=== PATIENT | male | born 1950 | race Caucasian/White ===

== ENCOUNTER 2020-06-27 11:04 | Emergency (ER) | payer OTHER ==
[2020-06-27] MEDS ORDERED: HYDROMORPHONE HCL 2 MG/ML inj ONE ×2 (11:30→16:06)
[2020-06-27] MEDS ORDERED: ONDANSETRON 4 MG/2 ML VIAL ONE (11:30)
--- OUTSIDE RECORDS SUMMARY | 2020-06-27 11:53 | XMS REPORT | Clinical Summary ---
:1950 Author Organization [facility] Address [address] [place] [address] Care Team Providers Name Role Phone TishayashrobertoSaran Primary Care Provider Allergies Active Allergy Reactions Severity Noted Date Comments No Known Drug Allergies Other (See Comments) 6 Medications Medication Sig Dispensed Refills Start End Date Status Date NAPROXEN ORAL Take 400 mg 0 Acti ve by mouth. 1 tablet Po bid prn hydroCHLOROthiazide Take 1 90 tablet 1 Active (HYDRODIURIL) 25 MG tablet (25 9 tabletIndications: mg total) Essential hypertension by mouth once daily. finasteride (PROSCAR) 5 Take 1 90 tablet 1 Active mg tablet tablet (5 0 mg total) by mouth daily. atorvastatin (LIPITOR) Take 1 90 tablet 1 Active 20 mg tablet tablet (20 0 mg total) by mouth daily. Default OP ins tamsulosin (FLOMAX) 0.4 Take 1 90 capsule 1 Active mg capsule capsule(s) 0 every day by oral route. amLODIPine-benazepriL Take 1 90 capsule 1 Active (LOTREL) 5-40 mg per capsule by 0 capsule mouth once daily. Needs office visit. metoprolol tartrate Take 1 180 tablet 3 04/25/20 Active (LOPRESSOR) 50 mg tablet (50 0 21 tablet mg total) by mouth 2 (two) times a day. tamsulosin (FLOMAX) 0.4 Take 1 90 capsule 1 12/25 Discontinued mg capsule capsule(s) 9 20 (Reorder ) every day by oral route. amlodipine-benazepril Take 1 90 capsule 1 0 Discontinued (LOTREL) 5-40 mg per capsule by 9 20 (Reorder) capsule mouth once daily. Needs office visit. atorvastatin (LIPITOR) Take 1 90 tablet 0 0 Discontinued 20 MG tablet tablet (20 9 19 (Reord er) mg total) by mouth once daily. Default OP ins metoprolol succinate XL Take 1 90 tablet 1 Discontinued (TOPROL-XL) 25 mg 24 hr tablet (25 9 20 (Discontinued tabletIndications: mg total) b y another Essential hypertension by mouth clinician) once daily. metFORMIN XR One P.O. 180 tablet 1 07/26/20 Discon tinued (GLUCOPHAGE-XR) 500 mg B.I.D. 9 19 (Side effects) 24 hr tablet finasteride (PROSCAR) 5 Take 1 90 tablet 1 Discontinued mg tablet tablet (5 9 20 (Reorder) mg total) by mouth daily. atorvastatin (LIPITOR) Take 1 90 tablet 0 0 Discontinued 20 MG tablet tablet (20 9 19 mg total) by mouth once daily. Default OP ins atorvastatin (LIPITOR) Take 1 90 tablet 0 0 Discontinued 20 MG tablet tablet by 9 20 (Reorde r) mouth once daily metoprolol tartrate Take 1 60 tablet 11 04/25/20 Discontinued (LOPRESSOR) 50 mg tablet (50 0 20 ( Reorder) tablet mg total) by mouth 2 (two) times a day. atorvastatin (LIPITOR) Take 1 90 tablet 1 0 Discontinued 20 MG tablet tablet (20 0 20 (Reord er) mg total) by mouth daily. Default OP ins tamsulosin (FLOMAX) 0.4 Take 1 90 capsule 1 04/24 Discontinued mg capsule capsule(s) 0 20 (Reorder ) every day by oral route. amLODIPine-benazepriL Take 1 90 capsule 1 0 Discontinued (LOTREL) 5-40 mg per capsule by 0 20 (Reorder) capsule mouth once daily. Needs office visit. Active Problems Problem Noted Date Nutritional counseling 07/26/2019 Obesity, morbid, BMI 50 or higher 07/26/2019 Metformin adverse reaction 07/26/2019 Type 2 diabetes mellitus without complication, without long-term current 05/26/2018 use of insulin Depression screening 05/26/2018 Sleep disorder 08/28/2016 Somnolence, daytime 08/28/2016 Hearing loss 08/28/2016 Knee stiff 08/28/2016 Hyperglycemia 08/28/2016 Panic attack 04/23/2016 Morbid obesity due to excess calories 04/23/2016 Benign prostatic hyperplasia 12/26/2015 Hypercholesteremia 12/26/2015 Hypertension 12/26/2015 Knee pain 12/26/2015 Unsteady gait 12/26/2015 Encounters Date Type Specialty Care Team Description 04/25/2020 Orders Only Family Belinda Caldera DO 04/25/2020 Telephone Family Ashley Ansari LVN 04/24/2020 Office Visit Family Belinda Caldera hypertension (Primary Dx); Saran, DO Type 2 diabetes mellitus without complication, without long-term current use of insulin (HCC); Hypercholestere 04/24/2020 Refill Family Belinda Caldera hypertension Saran, DO 04/24/2020 Refill Family Medicine Belinda Romo DO 04/24/2020 Travel 01/05/2020 Telephone Family Ashley Ansari LVN 12/26/2019 Office Visit Family Belinda Caldera hypertension (Primary Dx); Saran, DO Type 2 diabetes mellitus without complication, without long-term current use of insulin (HCC); Shortness of br eath at rest 11/03/2019 Orders Only Family Belinda Caldera Colon ca ncer screening Saran DO (Primary Dx) 10/15/2019 Refill Family Medicine Maci Will MD 07/26/2019 Office Visit Family Belinda Caldera Adverse effect of metformin, initial encounter (Primary Dx); Saran DO Type 2 diabetes mellitus without complication, without long-term current use of insulin (HCC); Nutritional cou nseling; Morbid obesity due to excess calories (HCC); Obesity, morbid , BMI 50 or higher (HCC); Screening, iron deficiency anemia 07/17/2019 Refill Family Medicine Tamar Hickey MA 07/16/2019 Refill Family Medicine Belinda Romo, DO after 06/27/2019 Immunizations Name Administration Dates Next Due FLUZONE HIGH-DOSE PF 08/07/2019, 11/10/2018, 2016, 08/14/2015, 07/25/2014 Pneumococcal Conjugate 13-Valent 11/03/2017 Pneumococcal Polysaccharide 08/25/2013 Family History Medical History Relation Name Comments Hypertension Father Stroke Father Breast cancer Mother Cancer Mother Relation Name Status Comments Father (Age 49) Mother (Age 73) Social History Tobacco Use Types Packs/Day Years Used Date Former Smoker Cigarettes 1 1965 - 2015 Smokeless Tobacco: Former User Chew, Snuff Q uit: 01/17/2018 Tobacco Cessation: Counseling Given: No Alcohol Use Drinks/Week oz/Week Comments No stopped drinking 2001 Sex Assigned at Date Recorded Not on file Job Start Date Occupation Industry Not on file Not on file Not on file Travel History Travel Start Travel End No recent travel history available. Last Filed Vital Signs Vital Sign Reading Time Taken Comments Blood Pressure 185/85 04/24/2020 9:45 AM CDT Pulse 82 04/24/2020 9:45 AM CDT Temperature 36.7 C (98 F) 04/24/2020 9:45 AM CDT Respiratory Rate 18 07/26/2019 10:15 AM CDT Oxygen Saturation 97% 04/24/2020 9:45 AM CDT Inhaled Oxygen Concentration - - Weight 176 kg (388 lb) 04/24/2020 9:45 AM CDT Height 182.9 cm (6') 04/24/2020 9:45 AM CDT Body Mass Index 52.62 04/24/2020 9:45 AM CDT Plan of Treatment Health Maintenance Due Date Last Done Comments DIABETIC RETINAL EYE EXAM 1950 COLONOSCOPY SCREENING 2000 SHINGLES VACCINES (#1) 2000 65+ PNEUMOCOCCAL VACCINE (2 of 2 - 11/03/2018 11/03/2017, 1 10/25/2012 PPSV23) INFLUENZA VACCINE 07/25/2020 08/07/2019, 11/10/2018, 11/10/2018, Additional history exists DIABETIC FOOT EXAM 12/25/2020 12/26/2019, 12/26/2019, 07/26/2019, Additional history exists URINE MICROALBUMIN 04/29/2021 04/29/2020, 12/11/2019, 05/09/2019, Additional history exists Procedures Procedure Name Priority Date/Time Associated Diagnosis Comme nts MICROALBUMIN / Routine 04/29/2020 11:08 Type 2 diabetes Result s for this CREATININE URINE RATIO AM CDT mellitus without p rocedure are in complication, the results without long-term section. current use of insulin ([facility]) URINALYSIS, MICRO UA Routine 04/29/2020 11:08 Type 2 diabetes Results for this SCREEN WITH MICROSCOPY AM CDT mellitus without p rocedure are in complication, the results without long-term section. current use of insulin ([facility]) LIPID PANEL Routine 04/24/2020 10:16 Type 2 diabetes Results for this AM CDT mellitus without procedure a re in complication, the results without long-term section. current use of insulin ([facility]) COMPREHENSIVE Routine 04/24/2020 10:16 Type 2 diabetes Results for this METABOLIC PANEL AM CDT mellitus without procedur e are in complication, the results without long-term section. current use of insulin ([facility]) CBC WITH PLATELET AND Routine 04/24/2020 10:16 Essential Re sults for this DIFFERENTIAL AM CDT hypertension procedure are i n the results section. HEMOGLOBIN A1C Routine 04/24/2020 10:16 Type 2 diabetes Result s for this AM CDT mellitus without procedure a re in complication, the results without long-term section. 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 current use of insulin ([facility]) LIPID PANEL Routine 11/30/2019 9:39 Type 2 diabetes Results for this AM [employer] WAITER/WAITRESS mellitus without procedure a re in complication, the results without long-term section. 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 current use of insulin ([facility]) CBC WITH PLATELET AND Routine 11/30/2019 9:39 Screening, iron Results for this DIFFERENTIAL AM [employer]FFET WAITER/WAITRESS deficiency anemia procedure are in the results section. 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 current use of insulin (HCC) after 06/27/2019 Results Urinalysis, micro UA screen with microscopy (04/29/2020 11:08 AM CDT) WBC, UA NONE SEEN < OR = 5 /HPF [facility] [place] RBC, UA NONE SEEN < OR = 2 /HPF [facility] [place] Squamous epithelial NONE SEEN < OR = 5 /HPF [facility] cells, UA [place] Bacteria, UA FEW (A) NONE SEEN /HPF [facility] [place] Hyaline casts, UA NONE SEEN NONE SEEN /LPF [facility] [place] Specimen Urine Narrative Performed At [facility] 04/24/2020 FROM [id number] [facility] Resulting Agency Comment Performing Organization Information: Site ID: [id number] Name: [facility] Address: [address] [place] [phone] Director: Alex Forbes Performing Organization Address [facility] Phone Number [employer] [address] [address] Microalbumin / creatinine urine ratio (04/29/2020 11:08 AM CDT)Only the most recent of2 resultswithin the time period is included. Creatinine, 83 20 - 320 [facility] urine, random mg/dL [place] Microalbumin, 1.4 See Note: [facility] urine Comment: mg/dL [place] Reference Range: Reference Range Not established Microalbumin/cre 17 <30 mcg/mg [facility] atinine ratio Comment: creat HWANG The ADA defines abnormalities in albumin excretion as follows: Category Result (mcg/mg creatinine) Normal <30 Microalbuminuria 30-299 Clinical albuminuria > OR = 300 The ADA recommends that at least two of three specimens collected within a 3-6 month period be abnormal before considering a patient to be within a diagnostic category. Specimen Narrative Performed At [facility] 04/24/2020 FROM [id number] [facility] Comment Performing Organization Information: Site ID: [id number] Name: [facility] Address: [address] [place] [id number] Director: Alex Forbes Performing Organization Address City/State/Zipcode Phone Number [facility] [place] [address] [place] [address] CBC with platelet and differential (04/24/2020 10:16 AM CDT)Only the most recent of2 resultswithin the time period is included. [facility] WBC 6.8 3.8 - 10.8 [facility] Thousand/uL [place] RBC 4.02 (L) 4.20 - 5.80 [facility] Million/uL [place] HGB 11.8 (L) 13.2 - 17.1 [facility] g/dL [place] HCT 37.8 (L) 38.5 - 50.0 % [facility] [place] MCV 94.0 80.0 - 100.0 fL [email or web address] [place] MCH 29.4 27.0 - 33.0 pg [facility] [place] MCHC 31.2 (L) 32.0 - 36.0 [facility] g/dL [place] RDW 14.5 11.0 - 15.0 % [facility] [place] Platelet count 189 140 - 400 [facility] Thousand/uL [place] MPV 9.9 7.5 - 12.5 fL [facility] [place] Neutrophils, absolute 4,393 1,500 - 7,800 [facility] cells/uL [place] Lymphocytes, absolute 1,877 850 - 3,900 [facility] cells/uL [place] Monocytes, absolute 394 200 - 950 [facility] cells/uL [place] Eosinophils, absolute 109 15 - 500 [facility] cells/uL [place] Basophils, absolute 27 0 - 200 [facility] cells/uL [place] Neutrophils 64.6 % [facility] [place] Lymphocytes 27.6 % [facility] [place] Monocytes 5.8 % [email or web address] [place] Eosinophils 1.6 % [facility] [place] Basophils + RC 0.4 % [facility] [place] Specimen Blood Narrative Performed At FASTING:NO [facility] PATIENT UNABLE TO VOID; ADVISED TO RETUR N FOR COLLECTION. FASTING: NO Resulting Agency Comment Performing Organization Information: Site ID: [id number] [facility]: [facility] Address: [address] [place] [address] Director: Alex Forbes Performing Organization Address City/State/Zipcode Phone Number [facility] [place] [address] [place] [address] Hemoglobin A1c (04/24/2020 10:16 AM CDT)Only the most recent of2 resultswithin the time period is included. [facility] Hemoglobin A1C 7.0 (H) <5.7 % of [facility] Comment: total Hgb [place] For someone without known diabetes, a hemoglobin A1c value of 6.5% or greater indicates that they may have diabetes and this should be confirmed with a follow-up test. For someone with known diabetes, a value <7% indicates that their diabetes is well controlled and a value greater than or equal to 7% indicates suboptimal control. A1c targets should be individualized based on duration of diabetes, age, comorbid conditions, and other considerations. Currently, no consensus exists regarding use of hemoglobin A1c for diagnosis of diabetes for children. Specimen Blood Narrative Performed At FASTING:NO [facility] PATIENT UNABLE TO VOID; ADVISED TO RETUR N FOR COLLECTION. FASTING: NO Resulting Agency Comment Performing Organization Information: Site ID: [id number] [facility]: [facility] Address: [address] [place] [phone] Director: Alex Forbes Performing Organization Address City/State/Zipcode Phone Number [facility] [place] [id number] Lipid panel (04/24/2020 10:16 AM CDT)Only the most recent of2 resultswithin the time period is included. [facility] Cholesterol, total 142 <200 mg/dL [facility] HDL cholesterol 51 > OR = 40 [facility] mg/dL [place] Triglycerides 85 <150 mg/dL [facility] LDL cholesterol 74 mg/dL (calc) [facility] calculated Comment: [place] Reference range: <100 Desirable range <100 mg/dL for primary prevention; <70 mg/dL for patients with CHD or diabetic patients with > or = 2 CHD risk factors. LDL-C is now calculated using the Tonya calculation, which is a validated novel method providi ng better accuracy than the Friedewald equation in the estimation of LDL-C. Alvin SS et al. BRANDIE. 2013;310(19): 2457-1133 (http://education.[employer].Fourandhalf/faq/VOV076) Cholesterol/HDL 2.8 <5.0 (calc) [facility] Non-HDL cholesterol 91 <130 mg/dL [facility] Comment: (calc) [place] For patients with diabetes plus 1 major ASCVD risk factor, treating to a non-HDL-C goal of <100 mg/dL (LDL-C of <70 mg/dL) is considered a therapeutic option. Specimen Blood Narrative Performed At FASTING:NO [facility] PATIENT UNABLE TO VOID; ADVISED TO RETUR N FOR COLLECTION. FASTING: NO Resulting Agency Comment Performing Organization Information: Site ID: [id number] Name: [facility] Address: [address] [place] [address] Director: Alex Forbes Performing Organization Address City/State/Zipcode Phone Number [facility] CURRY [place] [address] [place] [phone] Comprehensive metabolic panel (04/24/2020 10:16 AM CDT)Only the most recent of2 resultswithin the time period is included. Glucose 177 (H) 65 - 139 [facility] Comment: mg/dL [place] Non-fasting reference interval BUN 14 7 - 25 mg/dL [facility] [place] Creatinine 0.89 0.70 - 1.25 [facility] Comment: mg/dL [place] For patients >49 years of age, the reference limit for Creatinine is approximately 13% higher for people identified as -Armenian. EGFR Non-Afr. 87 > OR = 60 [facility] Armenian mL/min/1.73m [place] 2 EGFR 101 > OR = 60 [facility] Armenian mL/min/1.73m [place] 2 BUN/creatinine NOT APPLICABLE 6 - 22 [facility] ratio (calc) [place] Sodium 135 135 - 146 [facility] mmol/L [place] Potassium 4.0 3.5 - 5.3 [facility] mmol/L [place] Chloride 99 98 - 110 [facility] mmol/L [place] CO2 33 (H) 20 - 32 [facility] mmol/L [place] Calcium 9.1 8.6 - 10.3 [facility] mg/dL [place] Protein 8.9 (H) 6.1 - 8.1 [facility] g/dL [place] Albumin, S 3.6 3.6 - 5.1 [facility] g/dL [place] Globulin, total 5.3 (H) 1.9 - 3.7 [facility] g/dL (calc) [place] Albumin/globulin 0.7 (L) 1.0 - 2.5 [facility] ratio (calc) [place] Total bilirubin 0.4 0.2 - 1.2 [facility] mg/dL [place] Alkaline 80 35 - 144 U/L [facility] phosphatase [place] AST 11 10 - 35 U/L [facility] [place] ALT 12 9 - 46 U/L [facility] [place] Specimen Blood Narrative Performed At FASTING:NO [facility] PATIENT UNABLE TO VOID; ADVISED TO RETUR N FOR COLLECTION. 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
--- OUTSIDE RECORDS SUMMARY | 2020-06-27 11:54 | XMS REPORT | Continuity of Care Document ---
:1950 Author Organization [facility] t Address [address] [place] [address] Care Team Providers Name Role Phone Saran Romo DO Primary Care Physician Saran Romo DO Attending Clinician Hieu WADE Attending Clinician Unavailable Michael Will MD Attending Clinician Edelmira BONE Attending Clinician Unavailable Payers Payer Name Policy Type Policy Number Effective Date Expiration Date S negar [id number] xxxxxxxxxxx 2009 [place] [id number] 00:00:00 [facility] entMilitary Problems Condition Condition Condition Status Onset Resolution Last Treating Co mments Source Name Details Category Date Date Treatment Clinician Date Nutritiona Nutritiona Disease Active 2018-10 H radha l l 0-02 [facility] counseling counseling 00:00: st 00 Obesity, Obesity, Disease Active 2018-10 [place] morbid, morbid, 0-02 [facility] BMI 50 or BMI 50 or 00:00: st higher higher 00 Metformin Metformin Disease Active 2018-10 [facility] ston adverse adverse 0-02 [facility] reaction reaction 00:00: st 00 Type 2 Type 2 Disease Active [place] diabetes diabetes 05-26 [facility] i mellitus mellitus 00:00: st without without 00 complicati complicati on, on, without without long-term long-term current current use of use of insulin insulin Depression Depression Disease Active H radha screening screening 05-26 Meth romie 00:00: st 00 Sleep Sleep Disease Active 2015-10 [place] disorder disorder 10-28 Method i 00:00: st 00 Somnolence Somnolence Disease Active 2015-10 H lexalatesha , daytime , daytime 104 Meth romie 00:00: st Hearing Hearing Disease Active 2015-10 [place] loss loss 10-28 Methodi 00:00: st 00 Knee stiff Knee stiff Disease Active 2015-10 [place] 10-28 Method[facility] 00:00: st 00 Hyperglyce Hyperglyce Disease Active 2015-10 lexalatesha brand sunday 1 [facility] 00:00: st 00 Panic Panic Disease Active [place] attack attack 04-23 Methodi 00:00: st 00 Morbid Morbid Disease Active [place] obesity obesity 04-23 [facility] due to due to 00:00: st excess excess 00 calories calories Benign Benign Disease Active [place] prostatic prostatic 12-25 Meth romie hyperplasi hyperplasi 00:00: st a a 00 Hyperchole Hyperchole Disease Active H lexalatesha steremia steremia 12-25 Method i 00:00: st 00 Hypertensi Hypertensi Disease Active H radha on on 12-25 Methodi 00:00: st 00 Knee pain Knee pain Disease Active [place] ston 12-25 Methodi 00:00: st 00 Unsteady Unsteady Disease Active [place] gait gait 12-25 Methodi 00:00: st 00 Allergies, Adverse Reactions, Alerts This patient has no known allergies or adverse reactions. Family History Family Member Diagnosis Comments Start Date Stop Date Source Natural father Hypertension [facility] Natural father Stroke [facility] Natural mother Breast cancer [facility] Natural mother Cancer [facility] Social History Social Habit Start Date Stop Date Quantity Comments Source History of tobacco Current smoker Sami addisonjose Souza use Sex Assigned At [facility] ethodist Cigarettes smoked 2020-04-24 2020-04-24 [place] [facility] current (pack per 00:00:00 00:00:00 day) - Reported Alcohol intake 2020-04-24 2020-04-24 Current [facility] 00:00:00 00:00:00 non-drinker of alcohol (finding) Alcohol Comment 2016-04-23 2016-04-23 stopped drinking Landry luevanojuan c Souza 00:00:00 00:00:00 2002 Smoking Status Start Date Stop Date Source Former smoker 2020-04-24 00:00:00 2020-04-24 00:00:00 Kimo Souza Medications Ordered Filled Start Stop Current Ordering Indication Dosage Frequency Signature Comments Components Source Medication Medication Date Date Medication? Clinician (SIG) Name Name atorvastati 2019- Yes 20mg QD Take 1 [place] (LIPITOR) 04-25 tablet (20 Me thodi 20 mg 00:00: mg total) st tablet 00 by mouth daily. Default OP ins tamsulosin Yes Take 1 [place] (FLOMAX) 04-25 capsule(s) Metho di 0.4 mg 00:00: every day st capsule 00 by oral route. amLODIPine- Yes 1{capsu QD Take 1 [place] benazepriL 04-25 le} capsule by Met hodi (LOTREL) 00:00: mouth once st 5-40 mg per 00 daily. capsule Needs office visit. metoprolol 2019-2020- Yes 50mg Q.5D Take 1 [place] tartrate 04-25 tablet (50 Meth romie (LOPRESSOR) 00:00: 23:59 mg total) st 50 mg 00 :00 by mouth 2 tablet (two) times a day. NAPROXEN 2019-0 Yes 400mg Take 400 [place] ORAL - mg by Methodi 09:43: mouth. 1 tablet Po bid prn finasteride 2019-0 Yes 5mg QD Take 1 [place] (PROSCAR) 5 - tablet (5 Met hodi mg tablet 00:00: mg total) st 00 by mouth daily. metoprolol 2019- No 50mg Q.5D Take 1 [place] tartrate 12-25 tablet (50 Meth romie (LOPRESSOR) 00:00: 00:00 mg total) st 50 mg 00 :00 by mouth 2 tablet (two) times a day. atorvastati 2019-0 2020- No 20mg QD Take 1 [place] st[place] n (LIPITOR) 12-25 tablet (20 M ethodi 20 MG 00:00: 00:00 mg total) st tablet 00 :00 by mouth daily. Default OP ins tamsulosin 2019- No Take 1 [place] (FLOMAX) 12-25 capsule(s) Meth romie 0.4 mg 00:00: 00:[address] capsule 00 :00 by oral route. amLODIPine- 2020- No 1{capsu QD Take 1 [place] benazepriL 3-03 07- le} capsule by De thodi (LOTREL) 00:00: 00:[address] 5-40 mg per 00 :00 daily. capsule Needs office visit. atorvastati 2018-10- No Take 1 [place] st[place] n (LIPITOR) 2- 03-03 tablet by Me thodi 20 MG 00:00: 00:[address] tablet 00 :00 daily atorvastati 2018- No 20mg QD Take 1 [place] st[place] n (LIPITOR) 9 12-23 tablet (20 M ethodi 20 MG 00:00: 00:00 mg total) st tablet 00 :00 by mouth once daily. Default OP ins finasteride 2019- No 5mg QD Take 1 [place] st[place] (PROSCAR) 5 7-15 03-03 tablet (5 Me thodi mg tablet 00:00: 00:00 mg total) st 00 :00 by mouth daily. hydroCHLORO Yes Essential 25mg QD Take 1 [place] thiazide 04-26 hypertensio tablet (25 Methodi (HYDRODIURI 00:00: n mg total) s t L) 25 MG 00 by mouth tablet once daily. metoprolol 2019- No Essential 25mg QD Take 1 [place] succinate 04-26 07- hypertensio tablet (25 Methodi XL 00:00: 00:00 n mg total) st (TOPROL-XL) 00 :00 by mouth 25 mg 24 hr once tablet daily. tamsulosin 2019- No Take 1 [place] (FLOMAX) 7- capsule(s) Meth romie 0.4 mg 00:00: 00:[address] capsule 00 :00 by oral route. amlodipine- 2020- No 1{capsu QD Take 1 [place] benazepril 7- 03-03 le} capsule by De th[place] (LOTREL) 00:00: 00:[address] 5-40 mg per 00 :00 daily. capsule Needs office visit. metFORMIN 2018- No One P.O. [place] ston XR 7- 10-02 B.I.D. Methodi (GLUCOPHAGE 00:00: 00:00 st -XR) 500 mg 00 :00 24 hr tablet atorvastati 2019- No 20mg QD Take 1 [place] irizarry (LIPITOR) 04-26 tablet (20 M ethodi 20 MG 00:00: 00:00 mg total) st tablet 00 :00 by mouth once daily. Default OP ins Immunizations Ordered Immunization Filled Immunization Date Status Commen ts Source Name Name FLUZONE HIGH-DOSE PF 2019-08-07 Completed [place] 00:00:00 [facility] FLUZONE HIGH-DOSE PF 2018-11-10 Completed [place] 00:00:00 [facility] Pneumococcal 2017-11-03 Completed Kimo Conjugate 13-Valent 00:00:00 Metho dist FLUZONE HIGH-DOSE PF 2016 Completed [place] 00:00:00 [facility] FLUZONE HIGH-DOSE PF 2015-08-14 Completed [place] 00:00:00 [facility] FLUZONE HIGH-DOSE PF 2014-07-25 Completed [place] 00:00:00 [facility] Pneumococcal 2013-08-25 Completed Malin Polysaccharide 00:00:00 [facility] Vital Signs Vital Name Observation Time Observation Value Comments Source Systolic blood 2020-04-24 09:45:00 185 mm[Hg] [place] n [facility] pressure Diastolic blood 2020-04-24 09:45:00 85 mm[Hg] [place] [facility] pressure Heart rate 2020-04-24 09:45:00 82 /min Kimo Souza Body temperature 2020-04-24 09:45:00 36.67 Arielle [place] [facility] Body height 2020-04-24 09:45:00 182.9 cm Kimo Souza Body weight 2020-04-24 09:45:00 175.996 kg Kimo Souza BMI 2020-04-24 09:45:00 52.62 kg/m2 Kimo Souza Oxygen saturation in 2020-04-24 09:45:00 97 /min Kimo Souza Arterial blood by Pulse oximetry Respiratory rate 2019-07-26 10:15:00 18 /min Frankie Souza Procedures Procedure Date / Time Performed Performing Clinician Sournancy e URINALYSIS, MICRO UA 2020-04-29 11:08:00 Belinda Romo SCREEN WITH MICROSCOPY MICROALBUMIN / CREATININE 2020-04-29 11:08:00 Belinda Romo am URINE RATIO HEMOGLOBIN A1C 2020-04-24 10:16:00 Belidna Romo CBC WITH PLATELET AND 2020-04-24 10:16:00 Belinda Romo DIFFERENTIAL COMPREHENSIVE METABOLIC 2020-04-24 10:16:00 Belinda Romo PANEL LIPID PANEL 2020-04-24 10:16:00 Belinda Romo MICROALBUMIN / CREATININE 2019-12-11 14:26:00 Belinda Romo am URINE RATIO HEMOGLOBIN A1C 2019-11-30 09:39:00 Belinda Romo CBC WITH PLATELET AND 2019-11-30 09:39:00 Belinda Romo DIFFERENTIAL COMPREHENSIVE METABOLIC 2019-11-30 09:39:00 Belinda Romo PANEL LIPID PANEL 2019-11-30 09:39:00 Belinda Romo Plan of Care Planned Activity Planned Date Details Comments Source Future Scheduled 2021-04-29 URINE MICROALBUMIN [place] [facility] Test 00:00:00 [code = URINE MICROALBUMIN] Future Scheduled 2020-12-25 DIABETIC FOOT EXAM [place] [facility] Test 00:00:00 [code = DIABETIC FOOT EXAM] Future Scheduled 2020-07-25 INFLUENZA VACCINE [place] [facility] Test 00:00:00 [code = INFLUENZA VACCINE] Future Scheduled 2018-11-03 65+ PNEUMOCOCCAL [place] [facility] Test 00:00:00 VACCINE (2 of 2 - PPSV23) [code = 65+ PNEUMOCOCCAL VACCINE (2 of 2 - PPSV23)] Future Scheduled 2000 COLONOSCOPY SCREENING [place] [facility] Test 00:00:00 [code = COLONOSCOPY SCREENING] Future Scheduled 2000 SHINGLES VACCINES (#1) H radha [facility] Test 00:00:00 [code = SHINGLES VACCINES (#1)] Future Scheduled 1950 DIABETIC RETINAL EYE [facility] latesha [facility] Test 00:00:00 EXAM [code = DIABETIC RETINAL EYE EXAM] Encounters Start End Encounter Admission Attending Care Care Encounter Source Date/Time Date/Time Type Type Clinicians Facility Department ID 2020-04-24 2020-04-24 Outpatient [facility] [id number] [place] 00:00:00 00:00:[address] 2019-12-26 2019-12-26 Outpatient [facility] [id number] [place] 00:00:00 00:00:[address] Results Test Description Test Time Test Comments Results Result Comments Source Microalbumin / creatinine urine ratio 2020-04-30 15:36:00 Test Item Value Reference Range Interpretation Comme nts Creatinine, urine, 83 mg/dL 20-320 random (test code = 2161-8) Microalbumin, urine 1.4 mg/dL See Note: Referenc e Range:Reference (test code = 86169-7) RangeN ot established Microalbumin/creatini 17 <30 mcg/mg The A DA defines ne ratio (test code = creat abnorm alities in 9318-7) albuminexcretio n as follows: Catego ry Result (mcg/mg creatinine) Nor mal <30Microalbumin uria 30-299 Clinic al albuminuria > OR = 300 The ADA recomme nds that at least two of threespecimens collected within a 3-6 mo nth period beabnormal befo re considering a p atient to bewithin a diag nostic category. DAVID (test code = DAVID) SPLIT 04/24/2020 FROM [id number] RAC (test code = RAC) Performing Organization Information: Site ID: DERRICKA Name: [facility] Address: [address] [place] [phone] Director: Alex Forbes [place] MethodistUrinalysis, micro UA screen with [id number] 15:36:00 Test Item Value Reference Range Interpretation Comments WBC, UA (test code = NONE SEEN < OR = 5 /HPF 5821-4) RBC, UA (test code = NONE SEEN < OR = 2 /HPF 08885-7) Squamous epithelial NONE SEEN < OR = 5 /HPF cells, UA (test code = 24967-6) Bacteria, UA (test code FEW NONE SEEN /HPF A = 5769-5) Hyaline casts, UA (test NONE SEEN NONE SEEN /LPF code = 5796-8) DAVID (test code = DAVID) SPLIT 04/24/2020 FROM [id number] RAC (test code = RAC) Performing Organization Information: Site ID: RGA Name: [facility] Address: [address] [place] [address] Director: Alex Forbes Lab Interpretation (test Abnormal code = 15135-8) [place] MethodistComprehensive metabolic [id number] 02:21:00 Test Item Value Reference Interpretation Comments Range Glucose (test code 177 mg/dL 65-139 H N on-fasting = 2345-7) reference inter claude BUN (test code = 14 mg/dL 7-25 3094-0) Creatinine (test 0.89 mg/dL 0.7-1.25 For patient s >49 code = 2160-0) years of age, the reference limit for Creatinine is approximately 1 3% higher for peopleidentifie d as -Radha n. EGFR Non-Afr. 87 > OR = 60 German (test code mL/min/1.73m2 = 2775) EGFR 101 > OR = 60 German (test code mL/min/1.73m2 = 94577-4) BUN/creatinine NOT APPLICABLE 6 (calc) ratio (test code = 3097-3) Sodium (test code = 135 mmol/L 459-993 9809-2) Potassium (test 4.0 mmol/L 3.5-5.3 code = 2823-3) Chloride (test code 99 mmol/L 98-110 = 5-0) CO2 (test code = 33 mmol/L 20-32 H 2028-06) Calcium (test code 9.1 mg/dL 8.6-10.3 = 95063-0) Protein (test code 8.9 g/dL 6.1-8.1 H = 2885-2) Albumin, S (test 3.6 g/dL 3.6-5.1 code = 1751-7) Globulin, total 5.3 1.9- 3.7 g/dL H (test code = (calc) 55180-2) Albumin/globulin 0.7 1.0- 2.5 L ratio (test code = (calc) 1759-0) Total bilirubin 0.4 mg/dL 0.2-1.2 (test code = 1974-2) Alkaline 80 U/L 35-144 phosphatase (test code = 6768-6) AST (test code = 11 U/L 10-35 1920-8) ALT (test code = 12 U/L 9-46 1742-6) DAVID (test code = FASTING:NOPATIENT DAVID) UNABLE TO VOID; ADVISED TO RETURN FOR COLLECTION.FASTIN G: NO RAC (test code = Performing RAC) Organization Information: Site ID: MICHELLE Name: [facility] Address: [address] [place] [phone] Director: Alex Forbes Lab Interpretation Abnormal (test code = 58971-5) [place] MethodistLipid [id number] 02:21:00 Test Item Value Reference Range Interpretation Comments Cholesterol, total 142 mg/dL <200 (test code = 2093-3) HDL cholesterol 51 mg/dL > OR = 40 (test code = 2085-9) Triglycerides (test 85 mg/dL <150 code = 2571-8) LDL cholesterol 74 mg/dL (calc) Reference ra nge: calculated (test <100 Desira ble code = 18914-0) range <100 m g/dL for primary prevention; <7 0 mg/dL for patients with C HD or diabetic patients with > or = 2 CHD risk factors. LDL-C is now calculated using the Alvin-Rusty calculation, which is a validated novel method providin g better accuracy than the Friedewald equation in the estimation of LDL-C. Alvin S S et al. BRANDIE. 2013;310(19): 9707-4343 (http://educati on .[employer] .com/faq/QJA129 ) Cholesterol/HDL 2.8 <5.0 (calc) ratio (test code = 9830-1) Non-HDL cholesterol 91 <130 mg/dL For joelle ents with (test code = (calc) diabetes plus 1 15730-4) major ASCVD ris k factor, treatin g to a non-HDL-C goal of <100 mg/dL (LDL-C of <70 mg/dL) is considered a therapeutic option. DAVID (test code = FASTING:NOPATIENT DAVID) UNABLE TO VOID; ADVISED TO RETURN FOR COLLECTION.FASTING : NO RAC (test code = Performing RAC) Organization Information: Site ID: RGA Name: [facility] Address: [address] [place] [phone] Director: Alex Forbes [place] MethodistHemoglobin [id number] 02:21:00 Test Item Value Reference Interpretation Comments Range Hemoglobin A1C (test 7.0 <5.7 % of H For rolf eone without code = 4548-4) total Hgb known diabete s, a hemoglobin A1cv alue of 6.5% or grea ter indicates that they may have diabet es and this should be confirmed with a follow-up test. For someone with kn own diabetes, a claude ue <7% indicates t hat their diabetes is well controlled and a value greater than or equal t o 7% indicates suboptimal cont rol. A1c targets ramez uld be individualiz ed based on durati on of diabetes, ag e, comorbid conditions, and other considerations. Currently, no consensus exist s regarding use ofhemoglobin A1 c for diagnosis o f diabetes for children. DAVID (test code = FASTING:NOPATIENT DAVID) UNABLE TO VOID; ADVISED TO RETURN FOR COLLECTION.FASTIN G: NO RAC (test code = Performing RAC) Organization Information: Site ID: RGA Name: [facility] Address: [address] [place] [phone] Director: Alex Forbes Lab Interpretation Abnormal (test code = 03055-3) [place] MethodistCBC with platelet and [id number] 02:21:00 Test Item Value Reference Range Interpretation Comments WBC (test code = 6.8 3.8- 10.8 6690-2) Thousand/uL RBC (test code = 789-8) 4.02 4.20- 5.80 L Million/uL HGB (test code = 718-7) 11.8 g/dL 13.2-17.1 L HCT (test code = 37.8 % 38.5-50 L 4544-3) MCV (test code = 787-2) 94.0 fL 80-100 MCH (test code = 785-6) 29.4 pg 27-33 MCHC (test code = 31.2 g/dL 32-36 L 786-4) RDW (test code = 788-0) 14.5 % 11-15 Platelet count (test 189 140- 400 code = 777-3) Thousand/uL MPV (test code = 776-5) 9.9 fL 7.5-12.5 Neutrophils, absolute 4393 1,500 - 7,800 (test code = 751-8) cells/uL Lymphocytes, absolute 1877 850- 3,900 (test code = 731-0) cells/uL Monocytes, absolute 394 200- 950 cells/uL (test code = 742-7) Eosinophils, absolute 109 15- 500 cells/uL (test code = 711-2) Basophils, absolute 27 0- 200 cells/uL (test code = 704-7) Neutrophils (test code 64.6 % = 770-8) Lymphocytes (test code 27.6 % = 736-9) Monocytes (test code = 5.8 % 5905-5) Eosinophils (test code 1.6 % = 713-8) Basophils + RC (test 0.4 % code = 706-2) DAVID (test code = DAVID) FASTING:NOPATIENT UNABLE TO VOID; ADVISED TO RETURN FOR COLLECTION.FASTING: NO RAC (test code = RAC) Performing Organization Information: Site ID: RGA Name: [facility] Address: [address] [place] [phone] Director: Alex Forbes Lab Interpretation Abnormal (test code = 94350-7) Kimo Souza
--- NOTE | 2020-06-27 12:25 | RAD REPORT ---
EXAM DESCRIPTION: RAD - Knee Right 3 View - 06/27/2020 12:15 pm CLINICAL HISTORY: PAIN COMPARISON: No comparisons FINDINGS: Moderately displaced fracture of the distal femur shaft is seen proximal to total arthropl asty hardware. Subtle focal areas of lucency in the femur shaft proximal to the fracture seen, thus c annot rule out pathologic fracture. 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
[2020-06-27 12:53] LABS: Basophils % 0.3 % (0-1.3); Hematocrit 32.9 % (39.6-49.0); Lymphocytes % 15.2 % (15.3-44.8); MPV 7.8 fL (7.6-11.3); RBC Red Blood Cell Count 3.57 M/uL (4.33-5.43)
--- NOTE | 2020-06-27 13:00 | ER ---
Nurse's Notes [facility] Name: Weston Shearer Age: 69 yrs Sex: Male : 1950 Arrival Date: 06/27/2020 Time: 11:04 Bed 18 Private MD: Diagnosis: Distal Right femur Fracture Presentation: 06/27 11:08 Chief complaint: EMS states: R KNEE PAIN AFTER FLEXING KNEE GETTING IN SHOWER. bp Coronavirus screen: At this time, the client does not indicate any symptoms associated with coronavirus-19. Ebola Screen: No symptoms or risks identified at this time. Initial Sepsis Screen: Does the patient meet any 2 criteria? No. Patient's initial sepsis screen is negative. Does the patient have a suspected source of infection? No. Patient's initial sepsis screen is negative. Risk Assessment: Do you want to hurt yourself or someone else? Patient reports no desire to harm self or others. Onset of symptoms was June 27, 2020 at 10:00. 11:08 Acuity: STEF 3 bp 11:08 Method Of Arrival: [facility] bp 11:08 Care prior to arrival: Medication(s) given: 10 MG MORPHINE SULFATE IVP IV initiated. 20 bp GA, in the right. Triage Assessment: 11:08 General: Appears distressed, uncomfortable, obese, Behavior is cooperative, appropriate bp for age, agitated, anxious. Pain: Complains of pain in right knee. EENT: No deficits noted. Neuro: No deficits noted. Cardiovascular: No deficits noted. Respiratory: No deficits noted. GI: No signs and/or symptoms were reported involving the gastrointestinal system. : No signs and/or symptoms were reported regarding the genitourinary system. Derm: No deficits noted. Musculoskeletal: Reports pain in right knee. Historical: - Allergies: 11:08 No Known Allergies; bp - Home Meds: 11:08 amlodipine-benazepril 5-20 mg Oral cap [Active]; atorvastatin 20 mg Oral tab 1 tab once bp daily [Active]; finasteride 5 mg Oral tab 1 tab once daily [Active]; hydrochlorothiazide 25 mg Oral tab 1 tab once daily [Active]; metoprolol tartrate 25 mg Oral tab 1 tab once daily [Active]; tamsulosin 0.4 mg Oral cp24 1 cap once daily [Active]; - PMHx: 11:08 BPH; Hyperlipidemia; Hypertension; bp - Immunization history:: Adult Immunizations up to date. - Social history:: Smoking status: Patient denies any tobacco usage or history of. Screenin:14 Abuse screen: Denies threats or abuse. Denies injuries from another. Nutritional bp screening: No deficits noted. Tuberculosis screening: No symptoms or risk factors identified. Fall Risk No fall in past 12 months (0 pts). Secondary diagnosis (15 points) impaired mobility, IV access (20 points). Ambulatory Aid- None/Bed Rest/Nurse Assist (0 pts). Gait- Normal/Bed Rest/Wheelchair (0 pts) Mental Status- Oriented to own ability (0 pts). Total Boggs Fall Scale indicates Low Risk Score (25-44 pts). Fall prevention measures have been instituted. Side Rails Up X 2 Placed close to Nursing Station Frequent Obs/Assesments occuring As available Patient and Family Educated on Fall Prevention Program and strategies. Assessment: 11:10 General: SEE TRIAGE NOTE. bp 12:09 Reassessment: KNEE XRAY GROSSLY ABNORMAL. TRANSFER FOR ORTHO PENDING. PAIN MEDS HELD bp FOR TRANSFER. 13:23 Reassessment: TRANSFER IN PROCESS. VS STABLE ON MONITOR. bp 13:49 Reassessment: REPORT TO LEO HOLLOWAY AT [facility] FOR 15 TOWER 1554. TRANSPORT PENDING.bp 14:56 Reassessment: TRANSPORT PENDING, VS STABLE. bp 16:05 Reassessment: [facility]S, PT GEOVANNA. bp Vital Signs: 11:08 BP 173 / 80; Pulse 72; Resp 17; Temp 98; Pulse Ox 95% ; bp 11:21 BP 178 / 55; Pulse 65; Resp 14; Pulse Ox 97% ; bp 12:06 BP 116 / 79; Pulse 80; Resp 16; Pulse Ox 94% ; bp 13:23 BP 196 / 78; Pulse 77; Resp 17; Pulse Ox 95% ; bp 14:37 BP 157 / 73; Pulse 65; Resp 17; Pulse Ox 95% ; tw2 15:50 BP 164 / 78; Pulse 66; Resp 17; Pulse Ox 98% ; bp ED Course: 11:04 Patient arrived in ED. em1 11:05 Conrado Miguel PA is PHCP. jr8 11:05 Prosper Wilson MD is Attending Physician. jr8 11:05 David Piedra, RN is Primary Nurse. bp 11:08 Arm band placed on. bp 11:10 Triage completed. bp 11:14 Patient has correct armband on for positive identification. Bed in low position. Call bp light in reach. Side rails up X2. 11:14 Maintain EMS IV. Dressing intact. Good blood return noted. Site clean \T\ dry. Gauge \T\ bp site: 20 GAUGE LEFT HAND. 12:15 XRAY Knee RIGHT 3 view In Process Unspecified. EDMS 12:54 Initial lab(s) drawn, by me, sent to lab. jp3 12:54 CBC with Diff Sent. jp3 12:54 Basic Metabolic Panel Sent. jp3 16:06 No provider procedures requiring assistance completed. Patient transferred, IV remains bp in place. Administered Medications: 11:16 Not Given (Physician Discretion): fentaNYL (PF) 75 mcg IVP once; RASS on ADMIN: jrBalaji Combtv4, Very Agttd3, Agttd2, Rstlss1, AlertClm0, Drwsy-1, Lt Sdtn-2, Mod Sdtn-3, Dp Sdtn-4, UnArsble-5 11:21 Drug: Dilaudid 2 mg Route: IVP; Site: left hand; bp 12:06 Follow up: Response: Pain is decreased bp 11:21 Drug: Zofran (Ondansetron) 4 mg Route: IVP; Site: left hand; bp 12:06 Follow up: Response: No adverse reaction bp 16:04 Drug: Dilaudid 2 mg {Note: GIVEN FOR TRANSPORT.} Route: IVP; Site: left hand; bp 16:05 Follow up: Response: Pain is decreased bp Outcome: 12:59 ER care complete, transfer ordered by MD. valle 16:06 Transferred by ground EMS to [facility], Transfer form completed. bp 16:06 Condition: stable 16:06 Instructed on the need for transfer. 16:06 Patient left the ED. bp Signatures: Dispatcher [employer] EDMS Antonio Brian em1 Conrado Miguel PA PA jr8 Aubree Ash RN RN tw2 David Piedra, RN RN bp Juan Figueroa jp3 Corrections: (The following items were deleted from the chart) 12:17 12:09 Reassessment: KNEE XRAY GROSSLY ABNORMAL. TRANSFER FOR ORTHO PENDING bp bp
--- NOTE | 2020-06-27 13:00 | EDPHYS ---
Physician Documentation [facility] Name: Weston Shearer Age: 69 yrs Sex: Male : 1950 Arrival Date: 06/27/2020 Time: 11:04 Bed 18 Private MD: ED Physician Prosper Wilson HPI: 06/27 11:36 This 69 yrs old Male presents to ER via EMS with complaints of Knee Pain. jr8 11:36 The patient presents with decreased range of motion, pain. The complaints affect the jr8 right knee. Onset: The symptoms/episode began/occurred acutely, today. Modifying factors: The symptoms are alleviated by nothing. the symptoms are aggravated by movement. Associated signs and symptoms: The patient has no apparent associated signs or symptoms. Treatment prior to arrival includes: no previous treatment. Severity of symptoms: At their worst the symptoms were moderate, in the emergency department the symptoms have improved, mildly. The patient has not experienced similar symptoms in the past. The patient has not recently seen a physician. Patient stated that he hyperextended knee and felt it pop. Stated that it immediately swelled. Had immediate pain. EMS gave morphine in route to hospital which helped moderately with pain . Historical: - Allergies: 11:08 No Known Allergies; bp - Home Meds: 11:08 amlodipine-benazepril 5-20 mg Oral cap [Active]; atorvastatin 20 mg Oral tab 1 tab once bp daily [Active]; finasteride 5 mg Oral tab 1 tab once daily [Active]; hydrochlorothiazide 25 mg Oral tab 1 tab once daily [Active]; metoprolol tartrate 25 mg Oral tab 1 tab once daily [Active]; tamsulosin 0.4 mg Oral cp24 1 cap once daily [Active]; - PMHx: 11:08 BPH; Hyperlipidemia; Hypertension; bp - Immunization history:: Adult Immunizations up to date. - Social history:: Smoking status: Patient denies any tobacco usage or history of. ROS: 11:36 Eyes: Negative for injury, pain, redness, and discharge, ENT: Negative for injury, jr8 pain, and discharge, Neck: Negative for injury, pain, and swelling, Cardiovascular: Negative for chest pain, palpitations, and edema, Respiratory: Negative for shortness of breath, cough, wheezing, and pleuritic chest pain, Abdomen/GI: Negative for abdominal pain, nausea, vomiting, diarrhea, and constipation, Back: Negative for injury and pain, Skin: Negative for injury, rash, and discoloration, Neuro: Negative for headache, weakness, numbness, tingling, and seizure. 11:36 MS/extremity: Positive for decreased range of motion, pain, swelling, tenderness, of the right knee. Exam: 11:36 Eyes: Pupils equal round and reactive to light, extra-ocular motions intact. Lids and jr8 lashes normal. Conjunctiva and sclera are non-icteric and not injected. Cornea within normal limits. Periorbital areas with no swelling, redness, or edema. ENT: Nares patent. No nasal discharge, no septal abnormalities noted. Tympanic membranes are normal and external auditory canals are clear. Oropharynx with no redness, swelling, or masses, exudates, or evidence of obstruction, uvula midline. Mucous membranes moist. Neck: Trachea midline, no thyromegaly or masses palpated, and no cervical lymphadenopathy. Supple, full range of motion without nuchal rigidity, or vertebral point tenderness. No Meningismus. Cardiovascular: Regular rate and rhythm with a normal S1 and S2. No gallops, murmurs, or rubs. Normal PMI, no JVD. No pulse deficits. Respiratory: Lungs have equal breath sounds bilaterally, clear to auscultation and percussion. No rales, rhonchi or wheezes noted. No increased work of breathing, no retractions or nasal flaring. Abdomen/GI: Soft, non-tender, with normal bowel sounds. No distension or tympany. No guarding or rebound. No evidence of tenderness throughout. Back: No spinal tenderness. No costovertebral tenderness. Full range of motion. Skin: Warm, dry with normal turgor. Normal color with no rashes, no lesions, and no evidence of cellulitis. Neuro: Awake and alert, GCS 15, oriented to person, place, time, and situation. Cranial nerves II-XII grossly intact. Motor strength 5/5 in all extremities. Sensory grossly intact. 11:36 Musculoskeletal/extremity: Extremities: grossly normal except: noted in the right leg: Patient has moderate pain to right anterior knee. Unable to extend knee fully. Pain with ROM present along with decreased ROM. No obvious deformity present when compared with other leg , Pulses: noted to be 2+ in the right radial artery, right dorsalis pedis artery, left radial artery and left dorsalis pedis artery, Sensation intact. Vital Signs: 11:08 BP 173 / 80; Pulse 72; Resp 17; Temp 98; Pulse Ox 95% ; bp 11:21 BP 178 / 55; Pulse 65; Resp 14; Pulse Ox 97% ; bp 12:06 BP 116 / 79; Pulse 80; Resp 16; Pulse Ox 94% ; bp 13:23 BP 196 / 78; Pulse 77; Resp 17; Pulse Ox 95% ; bp 14:37 BP 157 / 73; Pulse 65; Resp 17; Pulse Ox 95% ; tw2 15:50 BP 164 / 78; Pulse 66; Resp 17; Pulse Ox 98% ; bp MDM: 11:05 Patient medically screened. jr8 12:57 Data reviewed: vital signs, nurses notes, lab test result(s), radiologic studies, plain jr8 films. Data interpreted: Pulse oximetry: on room air is 95 %. Interpretation: normal. Counseling: I had a detailed discussion with the patient and/or guardian regarding: the historical points, exam findings, and any diagnostic results supporting the discharge/admit diagnosis, lab results, radiology results, the need to transfer to another facility, [facility] does not immediately have the required specialist. ED course: Dr. Peña consulted at [facility]. Accepted as hospitalist for [facility] floor . 06/27 12:33 Order name: CBC with Diff; Complete Time: 12:56 jr8 06/27 12:33 Order name: Basic Metabolic Panel; Complete Time: 13:20 jr8 06/27 11:13 Order name: XRAY Knee RIGHT 3 view; Complete Time: 12:32 jr8 Administered Medications: 11:16 Not Given (Physician Discretion): fentaNYL (PF) 75 mcg IVP once; RASS on ADMIN: jr8 Combtv4, Very Agttd3, Agttd2, Rstlss1, AlertClm0, Drwsy-1, Lt Sdtn-2, Mod Sdtn-3, Dp Sdtn-4, UnArsble-5 11:21 Drug: Dilaudid 2 mg Route: IVP; Site: left hand; bp 12:06 Follow up: Response: Pain is decreased bp 11:21 Drug: Zofran (Ondansetron) 4 mg Route: IVP; Site: left hand; bp 12:06 Follow up: Response: No adverse reaction bp 16:04 Drug: Dilaudid 2 mg {Note: GIVEN FOR TRANSPORT.} Route: IVP; Site: left hand; bp 16:05 Follow up: Response: Pain is decreased bp Disposition: 17:07 Co-signature as Attending Physician, Prosper Wilson MD I agree with the assessment and kdr plan of care. Disposition: 06/27/20 12:59 Transfer ordered to [facility]. Diagnosis is Distal Right femur Fracture . - Reason for transfer: Higher level of care. - Accepting physician is Dr. Peña . - Condition is Stable. - Problem is new. - Symptoms are unchanged. Signatures: Dispatcher [employer] EDWA Prosper Wilson MD MD [facility] Conrado Miguel PA PA jr8 David Piedra, RN RN bp Corrections: (The following items were deleted from the chart) 16:06 12:59 06/27/2020 12:59 Transfer ordered to [facility]. bp Diagnosis is Distal Right femur Fracture . Reason for transfer: Higher level of care. Accepting physician is Dr. Peña . Condition is Stable. Problem is new. Symptoms are unchanged. jr8
[2020-06-27 13:19] LABS: Potassium 3.9 mmol/L (3.5-5.1)
[2020-06-29 07:39] VITALS: TEMP 98
[2020-06-29 07:45] VITALS: BP 164/78; O2SAT 98
== END 2020-06-27 16:06 | disposition short-term general hospital (02) ==
LOC: ER 11:04
DX: S72.401A Unspecified fracture of lower end of right femur, initial encounter for closed fracture (principal); X58.XXXA Exposure to other specified factors, initial encounter; Y93.01 Activity, walking, marching and hiking; Y92.9 Unspecified place or not applicable; I10 Essential (primary) hypertension; E78.5 Hyperlipidemia, unspecified
CPT/HCPCS: 85025; 80048; 36415; 73562; 96375; 96374; 99285; J1170 ×2; J2405